=== PATIENT | female | born 1950 | race Caucasian/White ===

== ENCOUNTER → 2017-01-12 | Outpatient (CLI) | payer MEDICARE ==
--- NOTE | 2017-01-12 12:29 | REPMRS ---
Patient History The patient states she has not had a clinical breast exam in over a year. Baseline Mammogram Patient is postmenopausal. No known family history of cancer. Digital Woman Screen Mammo: January 12, 2017 - Exam #: [id number] Bilateral CC and MLO view(s) were taken. Technologist: Evette Chavez, Technologist FINDINGS: There are scattered fibroglandular densities. There is no evidence of dominant mass, architectural distortion, or clustered microcalcification typical of malignancy. ASSESSMENT: BI-RADS/ACR category 1 mammogram. Negative. Recommendation Routine screening mammogram of both breasts in 1 year (for women over age 40). This mammogram was interpreted with the aid of an FDA-approved computer-aided dectection system. Electronically Signed By: Juwan Rao MD 01/12/17 1796
== END ==
LOC: M WHC 09:58
PROVIDERS: ATTEND Nurse Practitioner Family
DX: Z12.31 Encounter for screening mammogram for malignant neoplasm of breast (principal); Z78.0 Asymptomatic menopausal state

== ENCOUNTER → 2017-05-16 | Outpatient (CLI) | payer MEDICARE | LOC: M CLY 13:50 | DX: J44.9 Chronic obstructive pulmonary disease, unspecified (principal); J98.4 Other disorders of lung | CPT/HCPCS: 71046 ==

== ENCOUNTER → 2020-01-06 | Outpatient (CLI) | payer MEDICARE ==
--- NOTE | 2020-01-26 07:44 | REP ---
NONCONTRAST CHEST CT CLINICAL: Abnormal lung findings. TECHNIQUE: Axial noncontrast images from the thoracic inlet to the upper abdomen with coronal and sagittal reformations. COMPARISON: None available. FINDINGS: Advanced emphysematous changes are appreciated along with minimal amounts of scattered scarring primarily noted in the right upper lobe and bilateral bases (left greater than right). Within an area of presumed scarring in the anterior right upper lobe is a 7.5 mm noncalcified nodule (image 17). No further consolidation, suspicious nodule, or mass lesion is identified. No pleural effusion. No pneumothorax. Tracheobronchial tree is patent. No significant adenopathy appreciated by current noncontrast evaluation. Atherosclerotic changes to the thoracic aorta and coronary artery is noted without aortic aneurysm. No pericardial effusion. Surrounding musculoskeletal structures are intact. Limited upper abdomen demonstrates normal bilateral adrenal glands. Incompletely evaluated rounded lesion along the posterior aspect of the left kidney measuring 13 mm warrants further investigation to exclude mass. IMPRESSION: * Lung mejia demonstrate emphysematous changes with minimal scattered scarring as well as a small 7.5 mm noncalcified nodule centralized within a focal area of scarring in the anterior right upper lobe. Correlation and follow up may be warranted. No prior examinations are available for comparison. * 1.3 cm rounded lesion in the left kidney incompletely evaluated warrants further investigation. MTDD
== END ==
LOC: M RAD 16:01
PROVIDERS: ATTEND Internal Medicine Pulmonary Disease
DX: N28.9 Disorder of kidney and ureter, unspecified (principal); R91.1 Solitary pulmonary nodule

== ENCOUNTER → 2020-07-22 | Outpatient (CLI) | payer MEDICARE ==
--- NOTE | 2020-07-22 16:47 | REP ---
INDICATION: OTHER NONSPECIFIC ABNORMAL FINDING OF LUNG FIELD. COMPARISON: Comparison is made with prior studies dated January 06, 2020, July 14, 2019, May 26, 2019 and May 10, 2018.. TECHNIQUE: Helical scanning is acquired. 3 mm axial images are generated. Coronal and sagittal MPR and coronal MIP images are generated. FINDINGS: Preliminary digital jig worker radiograph shows some hyperinflation. Axial CT images show no evidence of pleural effusion or pericardial effusion. There are and fairly advanced emphysematous changes throughout the upper lobes bilaterally essentially unchanged. There is some pleuroparenchymal fibrosis in the anterior apex on the right with a stable small nodular soft tissue component. This measures 6 mm in greatest diameter. It has regressed since its original appearance on May 26, 2019 CT study. No new pulmonary nodule is appreciated. No lung mass or new infiltrate is seen. There is some linear fibrotic changes in the bases. Mild vascular calcification is observed. No hilar or mediastinal mass or adenopathy is observed. No adrenal lesion is seen. 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 Stable somewhat nodular fibrotic reaction is seen in the right apex. 6 mm. This has regressed since it originally appeared on May 26, 2019. <Electronically signed by Juwan Rao > 07/22/20 [id number]
== END ==
LOC: M RAD 15:12
PROVIDERS: ATTEND Internal Medicine Pulmonary Disease
DX: J44.9 Chronic obstructive pulmonary disease, unspecified (principal); R91.8 Other nonspecific abnormal finding of lung field

== ENCOUNTER → 2021-04-07 | Outpatient (CLI) | payer MEDICARE ==
--- NOTE | 2021-04-07 15:59 | REPVR ---
PROCEDURE INFORMATION: Exam: CT Chest Without Contrast; Diagnostic Exam date and time: 04/07/2021 2:37 PM Age: 70 years old Clinical indication: Abnormal findings; Abnormal radiologic exam of lung or chest; Additional info: Abn finding of lung field TECHNIQUE: Imaging protocol: Diagnostic computed tomography of the chest without contrast. 3D rendering (Not supervised by radiologist): MIP and/or 3D reconstructed images were created by the technologist. Radiation optimization: All CT scans at this facility use at least one of these dose optimization techniques: automated exposure control; mA and/or kV adjustment per patient size (includes targeted exams where dose is matched to clinical indication); or iterative reconstruction. COMPARISON: CT Chest without contrast 07/22/2020 3:20 PM FINDINGS: Thyroid: The thyroid gland is normal. 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 There are areas of apical parenchymal scarring with a 5 mm nodule again seen at the right apex on image 18. Pleural spaces: A more irregular nodule at the left apex measuring 7 x 11 mm on image 202:18 is not seen on the previous study and exhibits an elongated pattern parallel to the major fissure and about 4 cm in length on sagittal image 85. This changes concerning for malignancy and PET CT is recommended in view of the severe emphysema and attendant risk with needle biopsy. Heart: Unremarkable. No cardiomegaly. No pericardial effusion. Aorta: Unremarkable. No aortic aneurysm. Other arteries: The vasculature demonstrates diffuse moderate atherosclerotic calcification. The vasculature demonstrates diffuse moderate atherosclerotic calcification. Lymph nodes: Unremarkable. No enlarged lymph nodes. Bones/joints: Unremarkable. No acute fracture. Soft tissues: Unremarkable. IMPRESSION: 1. 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 There are areas of apical parenchymal scarring with a 5 mm nodule again seen at the right apex on image 18. 2. A more irregular nodule at the left apex measuring 7 x 11 mm on image 202:18 is not seen on the previous study and exhibits an elongated pattern parallel to the major fissure and about 4 cm in length on sagittal image 85. This changes concerning for malignancy and PET CT is recommended in view of the severe emphysema and attendant risk with needle biopsy. Electronically signed by: Bassem Doll On 04/07/2021 15:59:32 PM
== END ==
LOC: M RAD 14:25
PROVIDERS: ATTEND Internal Medicine Pulmonary Disease
DX: R91.8 Other nonspecific abnormal finding of lung field (principal)

== ENCOUNTER → 2021-04-15 | Outpatient (REF) | payer MEDICARE | LOC: M LAB REF 19:49 | PROVIDERS: ATTEND Pediatrics | DX: R05.1 Acute cough (principal) ==

== ENCOUNTER → 2021-05-02 | Outpatient (CLI) | payer MEDICARE ==
--- NOTE | 2021-05-03 09:17 | REP ---
INDICATION: DIAGNOSING SOLITARY PULMONARY NODULE. COMPARISON: There are no prior PET CTs for comparison. TECHNIQUE: After the intravenous administration of 9.09 mCi of FDG 18 triplane whole-body PET-CT was performed from the skull base to the mid thigh. NONCONTRAST HELICAL CT IMAGING WAS PERFORMED OVER THE SAME RANGE WITHOUT BREATH HOLD FOR ATTENUATION CORRECTION OF PET IMAGES AND ANATOMIC CORRELATION, BUT NOT FOR PRIMARY INTERPRETATION IT IS NOT OF STANDARD DIAGNOSTIC QUALITY. FINDINGS: In the left infrahilar region abutting the major fissure and multiple hilar vessels there is a focus of hypermetabolism with a maximal SUV value of 3.49. The activity in the immediate discernible vessels is non hypermetabolic and have maximal SUV values under 2.5. In the larger more superior vessels a maximal SUV value is 2.8. The asymmetric nodule seen in the left lung apical region seen on the prior CT of 04/07/2021 is not hypermetabolic. There is a large area of hypermetabolism in the floor of the mouth on the right extending centrally and having a maximal SUV value of 13.52. There is a right maxillary sinus soft tissue density and or air-fluid level with a maximal SUV value of 3.74. No other areas of abnormal hypermetabolic activity are seen in the neck, chest, abdomen, or pelvis. IMPRESSION: 1. The left lung apical nodule seen on the prior CT of 04/07/2021 is not abnormally hypermetabolic. 2. There is a focal area of hypermetabolism seen in the left hilar region as described above. This is in an area very difficult to evaluate with PET due to its proximity to vascular structures. No discernible nodule is identified in that region on the prior diagnostic CT scan of 04/07/2021. An attempt to identify a nodule in that region on the nondiagnostic CT obtained today may be fruitless. The finding could be inflammatory in nature, however, I recommend a follow-up diagnostic contrast-enhanced chest CT for further evaluation. 3. There is a rather large area of hypermetabolism seen in the floor of the mouth as described above. The etiology of this is uncertain. This needs to be correlated clinically. Diagnostic contrast-enhanced CT is recommended for further evaluation. 4. There is right maxillary sinus hypermetabolism, as described above, consistent with sinusitis. <Electronically signed by Jun Dunaway > 05/03/21 0913
== END ==
LOC: M PLARAD 14:56
PROVIDERS: ATTEND Internal Medicine Pulmonary Disease
DX: R91.1 Solitary pulmonary nodule (principal)
CPT/HCPCS: 78815; A9552

== ENCOUNTER → 2021-07-12 | Outpatient (CLI) | payer MEDICARE | LOC: M RAD 14:52 | PROVIDERS: ATTEND Internal Medicine Pulmonary Disease | DX: R91.8 Other nonspecific abnormal finding of lung field (principal) ==

== ENCOUNTER → 2021-07-18 | Outpatient (CLI) | payer MEDICARE | LOC: M WUC 15:07 | PROVIDERS: ATTEND Family Medicine | DX: S86.912A Strain of unspecified muscle(s) and tendon(s) at lower leg level, left leg, initial encounter (principal); W18.30XA Fall on same level, unspecified, initial encounter; Y92.009 Unspecified place in unspecified non-institutional (private) residence as the place of occurrence of the external cause ==

== ENCOUNTER → 2022-01-24 | Outpatient (CLI) | payer MEDICARE | LOC: M RAD 16:00 | PROVIDERS: ATTEND Internal Medicine Pulmonary Disease | DX: R91.8 Other nonspecific abnormal finding of lung field (principal) ==

== ENCOUNTER → 2022-08-18 | Outpatient (CLI) | payer MEDICARE | LOC: M RAD 10:18 | PROVIDERS: ATTEND Internal Medicine Pulmonary Disease | DX: R91.8 Other nonspecific abnormal finding of lung field (principal); J44.9 Chronic obstructive pulmonary disease, unspecified ==

== ENCOUNTER → 2022-09-27 | Outpatient (CLI) | payer MEDICARE | LOC: M RAD 10:48 | PROVIDERS: ATTEND Internal Medicine Pulmonary Disease | DX: R91.8 Other nonspecific abnormal finding of lung field (principal) ==

== ENCOUNTER → 2022-11-06 | Outpatient (CLI) | payer MEDICARE | LOC: M ADAMS 14:58 | PROVIDERS: ATTEND Family Medicine | DX: J69.0 Pneumonitis due to inhalation of food and vomit (principal) ==

== ENCOUNTER → 2022-11-06 | Outpatient (REF) | payer MEDICARE ==
[2022-11-06 16:56] LABS: HEMATOCRIT 45.1 % (36.0-47.0); HEMOGLOBIN 14.7 g/dl (12.0-15.5); MEAN CORPUSCULAR HEMOGLOBIN 29.3 pg (27.0-33.0); MEAN CORPUSCULAR HGB CONC 32.6 g/dl (32.0-36.5); MEAN CORPUSCULAR VOLUME 89.8 fl (80.0-96.0); PLATELET COUNT, AUTOMATED 226 10^3/uL (150-450); RED BLOOD COUNT 5.02 10^6/uL (4.00-5.40); WHITE BLOOD COUNT 18.3 10^3/uL (4.0-10.0)
[2022-11-06 17:28] LABS: FREE T4 1.08 NG/DL (0.89-1.76)
[2022-11-06 17:31] LABS: ALBUMIN 3.8 G/DL (3.2-5.2); ALKALINE PHOSPHATASE 124 U/L (46-116); ALT/SGPT 19 U/L (7.0-40); AST/SGOT 23 U/L (<34); BILIRUBIN,TOTAL 0.6 MG/DL (0.3-1.2); BLOOD UREA NITROGEN 14 MG/DL (9-23); CALCIUM LEVEL 8.9 MG/DL (8.3-10.6); CARBON DIOXIDE LEVEL 24 MMOL/L (20-31); CHLORIDE LEVEL 105 MMOL/L (98-107); CHOLESTEROL LEVEL 231 MG/DL (<200); CHOLESTEROL RISK RATIO 3.74 (<5); CREATININE FOR GFR 0.73 MG/DL (0.55-1.30); GLOMERULAR FILTRATION RATE > 60.0 (>39); GLUCOSE, FASTING 112 MG/DL (74-106); HDL CHOLESTEROL 61.7 MG/DL (>40); LDL CHOLESTEROL 147.7 MG/DL (<100); NON-HDL-C 169.3 MG/DL; POTASSIUM SERUM 4.2 MMOL/L (3.5-5.1); SODIUM LEVEL 138 MMOL/L (136-145); TOTAL PROTEIN 6.7 G/DL (5.7-8.2); TRIGLYCERIDES LEVEL 108 MG/DL (<150)
[2022-11-06 17:35] LABS: PROCALCITONIN 0.08 ng/ml
[2022-11-06 17:53] LABS: THYROID STIMULATING HORMONE 2.589 uIU/ML (0.55-4.78)
== END ==
LOC: M SFHCADAM 14:33
PROVIDERS: ATTEND Family Medicine
DX: J69.0 Pneumonitis due to inhalation of food and vomit (principal); F41.8 Other specified anxiety disorders; E78.5 Hyperlipidemia, unspecified; J44.9 Chronic obstructive pulmonary disease, unspecified

== ENCOUNTER → 2022-12-12 | Outpatient (CLI) | payer MEDICARE | LOC: M RAD 08:04 | PROVIDERS: ATTEND Family Medicine | DX: R14.0 Abdominal distension (gaseous) (principal) ==

== ENCOUNTER → 2023-02-26 | Outpatient (CLI) | payer MEDICARE | LOC: M PLAIMG 07:51 | PROVIDERS: ATTEND Internal Medicine Pulmonary Disease | DX: J43.2 Centrilobular emphysema (principal); I31.39 Other pericardial effusion (noninflammatory) ==

== ENCOUNTER → 2023-06-01 | Outpatient (CLI) | payer MEDICARE | LOC: M ADAMS 12:00 | PROVIDERS: ATTEND Family Medicine | DX: M25.461 Effusion, right knee (principal) ==

== ENCOUNTER → 2023-06-01 | Outpatient (REF) | payer MEDICARE ==
[2023-06-01 19:10] LABS: HEMATOCRIT 47.1 % (36.0-47.0); HEMOGLOBIN 15.1 g/dl (12.0-15.5); MEAN CORPUSCULAR HEMOGLOBIN 29.1 pg (27.0-33.0); MEAN CORPUSCULAR HGB CONC 32.1 g/dl (32.0-36.5); MEAN CORPUSCULAR VOLUME 90.8 fl (80.0-96.0); PLATELET COUNT, AUTOMATED 252 10^3/uL (150-450); RED BLOOD COUNT 5.19 10^6/uL (4.00-5.40); WHITE BLOOD COUNT 12.2 10^3/uL (4.0-10.0)
[2023-06-01 19:31] LABS: C REACTIVE PROTEIN QUANTITATIV < 0.40 MG/DL (<1.0)
[2023-06-01 19:33] LABS: ALBUMIN 3.5 G/DL (3.2-5.2); ALKALINE PHOSPHATASE 92 U/L (46-116); ALT/SGPT 29 U/L (7.0-40); AST/SGOT 18 U/L (<34); BILIRUBIN,TOTAL 0.2 MG/DL (0.3-1.2); BLOOD UREA NITROGEN 20 MG/DL (9-23); CALCIUM LEVEL 9.5 MG/DL (8.3-10.6); CARBON DIOXIDE LEVEL 26 MMOL/L (20-31); CHLORIDE LEVEL 106 MMOL/L (98-107); CHOLESTEROL LEVEL 215 MG/DL (<200); CREATININE FOR GFR 0.63 MG/DL (0.55-1.30); GLOMERULAR FILTRATION RATE > 60.0 (>39); GLUCOSE, FASTING 87 MG/DL (74-106); HDL CHOLESTEROL 53.7 MG/DL (>40); LDL CHOLESTEROL 108.1 MG/DL (<100); NON-HDL-C 161.3 MG/DL; POTASSIUM SERUM 4.2 MMOL/L (3.5-5.1); SODIUM LEVEL 140 MMOL/L (136-145); TOTAL PROTEIN 6.3 G/DL (5.7-8.2); TRIGLYCERIDES LEVEL 266 MG/DL (<150)
[2023-06-01 19:34] LABS: RHEUMATOID FACTOR QUANT 5.3 IU/ML (<14)
[2023-06-04 18:07] LABS: ANA (HEP2) Negative (.)
== END ==
LOC: M SFHCADAM 11:41
PROVIDERS: ATTEND Family Medicine
DX: E78.5 Hyperlipidemia, unspecified (principal); M25.461 Effusion, right knee

== ENCOUNTER → 2024-05-06 | Outpatient (CLI) | payer MEDICARE | LOC: M RAD 08:37 | PROVIDERS: ATTEND Internal Medicine Pulmonary Disease | DX: Z12.2 Encounter for screening for malignant neoplasm of respiratory organs (principal); Z87.891 Personal history of nicotine dependence ==

== ENCOUNTER → 2024-08-21 | Outpatient (CLI) | payer MEDICARE | LOC: M RAD 08:06 | PROVIDERS: ATTEND Internal Medicine Pulmonary Disease | DX: R91.8 Other nonspecific abnormal finding of lung field (principal); J43.9 Emphysema, unspecified; J98.4 Other disorders of lung; N28.1 Cyst of kidney, acquired ==

== ENCOUNTER → 2025-03-12 | Outpatient (REF) | payer MEDICARE ==
[2025-03-12 14:40] LABS: PLATELET COUNT, AUTOMATED 195 10^3/uL (150-450)
[2025-03-12 15:13] LABS: ALT/SGPT 33.0 U/L (7.0-40); AST/SGOT 25.0 U/L (<34); CALCIUM LEVEL 10.1 MG/DL (8.3-10.6); CARBON DIOXIDE LEVEL 31.0 MMOL/L (20-31); CHLORIDE LEVEL 104.0 MMOL/L (98-107); CHOLESTEROL LEVEL 253.0 MG/DL (<200); CHOLESTEROL RISK RATIO 4.04 (<5); CREATININE FOR GFR 0.74 MG/DL (0.55-1.30); GLOMERULAR FILTRATION RATE 84.9 (>39); LDL CHOLESTEROL 134.7 MG/DL (<100); NON-HDL-C 190.5 MG/DL; POTASSIUM SERUM 4.5 MMOL/L (3.5-5.1); SODIUM LEVEL 144.0 MMOL/L (136-145); TRIGLYCERIDES LEVEL 279.0 MG/DL (<150)
[2025-03-12 15:14] LABS: FREE T4 1.14 NG/DL (0.89-1.76)
[2025-03-12 15:26] LABS: ESTIMATED AVERAGE GLUCOSE 140.0 MG/DL (60-110)
== END ==
LOC: M SFHCADAM 10:28
PROVIDERS: ATTEND Family Medicine
DX: R06.09 Other forms of dyspnea (principal); R63.5 Abnormal weight gain; E78.5 Hyperlipidemia, unspecified; I25.10 Atherosclerotic heart disease of native coronary artery without angina pectoris; I70.0 Atherosclerosis of aorta

== ENCOUNTER → 2025-03-16 | Outpatient (CLI) | payer MEDICARE | LOC: M CARPUL 08:07 | PROVIDERS: ATTEND Family Medicine | DX: R06.09 Other forms of dyspnea (principal); I25.10 Atherosclerotic heart disease of native coronary artery without angina pectoris; I70.0 Atherosclerosis of aorta; I31.39 Other pericardial effusion (noninflammatory) ==

== ENCOUNTER → 2025-03-17 | Outpatient (CLI) | payer MEDICARE | LOC: M CARPUL 09:45 | PROVIDERS: ATTEND Family Medicine | DX: R06.09 Other forms of dyspnea (principal); R07.89 Other chest pain; I49.49 Other premature depolarization | CPT/HCPCS: 78452; 93017; A9500; J2785 ==

== ENCOUNTER → 2025-03-25 | Outpatient (CLI) | payer MEDICARE | LOC: M RAD 09:53 | PROVIDERS: ATTEND Internal Medicine Pulmonary Disease | DX: R91.8 Other nonspecific abnormal finding of lung field (principal) ==

== ENCOUNTER → 2025-04-28 | Outpatient (CLI) | payer MEDICARE | LOC: M WHC 07:44 | PROVIDERS: ATTEND Family Medicine | DX: Z12.31 Encounter for screening mammogram for malignant neoplasm of breast (principal); M81.0 Age-related osteoporosis without current pathological fracture ==